=== PATIENT | male | born 1940 | race Caucasian/White ===

== ENCOUNTER 2021-05-13 21:24 | Day surgery (SDCO) | payer MEDICARE, OTHER ==
[~2021-05-13] VITALS: Ht 182.9 cm; Wt 125.7 kg
[~2021-05-13 21:24] MED LIST: ALLEGRA ALLERG180 MG PO; AMBIEN10 MG PO; ASPIRIN CHEWABL81 MG PO; ATIVAN1 MG PO; COZAAR50 MG PO; CYMBALTA 30MG C30 MG PO; DEPAKOTE ER250 MG PO; ELAVIL25 MG PO; ELIQUIS5 M1 PO; ELIQUIS5 MG PO; FOLIC ACID1 MG PO; LIPITOR 10MG TA10 MG PO; NARCAN4 MG INH; NORVASC5 MG PO; OXYCODONE-ACET1 EACH PO; PERCOCET 10-321 EACH PO; PERCOCET 5-3251 EACH PO; SYMBICORT 80-10.2 GM INH; TOPAMAX100 MG PO; VITAMIN B-121000 MC1 PO; VITAMIN D400 UNIT XX; [UNRECOGNIZED DRUG - OTHER] PO
[2021-05-13 22:12] LABS: BASOPHIL 0.4 % (0-2); EOSINOPHIL 0.4 % (0-7); HCT 41.4 % (42.0-52.0); HGB 13.2 g/dl (13.2-18.0); LYMPHOCYTE 9.9 % (15-48); MCH 32.1 pg (25.0-31.0); MCHC 31.9 g/dL (32.0-36.0); MCV 100.7 fL (78.0-100.0); MONOCYTE 8.4 % (0-12); MPV 10.4 fL (6.0-9.5); NEUTROPHIL 80.1 % (41-80); NRBC 0; PLT 150 K/uL (150-400); RBC 4.11 M/uL (4.70-6.00); RDW 13.3 % (11.5-14.0)
[2021-05-13 22:23] LABS: ALBUMIN 3.4 g/dL (3.4-5.0); BILIRUBIN - TOTAL 0.3 mg/dL (0.2-1.0); BUN/CREAT RATIO (CALC) 27.3 RATIO; CREATININE 1.21 mg/dL (0.67-1.17); GLOBULIN (CALCULATION) 3.1 g/dL; POTASSIUM 4.2 mmol/L (3.5-5.1); TOTAL PROTEIN 6.5 g/dL (6.4-8.2)
[2021-05-13 22:59] LABS: LACTIC ACID 1.5 mmol/L (0.4-1.9)
[2021-05-13 23:20] LABS: BILIRUBIN NEGATIVE (NEGATIVE); BLOOD NEGATIVE Ery/uL (NEGATIVE); CLARITY CLEAR (CLEAR); COLOR YELLOW (YELLOW); GLUCOSE (U) NORMAL (NORMAL); LEUKOCYTES NEGATIVE Leu/uL (NEGATIVE); NITRITE NEGATIVE (NEGATIVE); PROTEIN NEGATIVE (NEGATIVE)
[2021-05-14] MEDS ORDERED: VENTOLIN HFA IN18 GM INH (04:15)
[2021-05-14] MEDS ORDERED: NORVASC5 MG PO (04:16)
[2021-05-14] MEDS ORDERED: ELIQUIS5 MG PO (04:17)
[2021-05-14] MEDS ORDERED: ASPIRIN EC81 MG PO (04:18)
[2021-05-14] MEDS ORDERED: LIPITOR 10MG TA10 MG PO (04:18)
[2021-05-14] MEDS ORDERED: VITAMIN B122500 MC1 PO (04:19)
[2021-05-14] MEDS ORDERED: CYMBALTA 30MG C30 MG PO (04:20)
[2021-05-14] MEDS ORDERED: DEPAKOTE ER250 MG PO (04:20)
[2021-05-14] MEDS ORDERED: PEPCID AC20 MG PO (04:23)
[2021-05-14] MEDS ORDERED: VITAMIN D21250 MCG PO (04:23)
[2021-05-14] MEDS ORDERED: FOLIC ACID1 MG PO (04:24)
[2021-05-14] MEDS ORDERED: ALLEGRA ALLERG180 MG PO (04:24)
[2021-05-14] MEDS ORDERED: FOLIC ACID0.8 M1 PO (04:25)
[2021-05-14] MEDS ORDERED: TOPROL XL 25MG25 MG PO (04:26)
[2021-05-14] MEDS ORDERED: COZAAR50 MG PO (04:26)
[2021-05-14] MEDS ORDERED: DULERA 200 MCG8.8 GM INH (04:28)
[2021-05-14] MEDS ORDERED: NYSTATIN SUSP1 ML/ML SSP (04:29)
[2021-05-14] MEDS ORDERED: MULTIPLE VITAM1 EACH PO (04:29)
[2021-05-14] MEDS ORDERED: OFLOXACIN5 M1 AU (04:30)
[2021-05-14] MEDS ORDERED: TOPIRAMATE50 MG PO (04:31)
[2021-05-14] MEDS ORDERED: MELATONIN5 M2 PO (04:32)
[2021-05-14] MEDS ORDERED: JOINT HEALTH T1 EACH PO (04:33)
[2021-05-14] MEDS ORDERED: PERCOCET 5-3251 EACH PO (04:33)
[2021-05-14 06:15] LABS: BASOPHIL 0.2 % (0-2); EOSINOPHIL 0.1 % (0-7); HCT 42.3 % (42.0-52.0); HGB 13.4 g/dl (13.2-18.0); LYMPHOCYTE 3.2 % (15-48); MCHC 31.7 g/dL (32.0-36.0); MPV 10.2 fL (6.0-9.5); PLT 130 K/uL (150-400); RBC 4.19 M/uL (4.70-6.00); RDW 13.5 % (11.5-14.0); WBC 18.9 K/uL (4.0-10.5)
[2021-05-14 06:18] LABS: NEUTROPHIL 92.7 % (41-80)
[2021-05-14 06:44] LABS: CKMB 1.5 ng/mL (0.0-3.6); PRO-BNP 1132 pg/mL (<450)
[2021-05-14 07:05] LABS: BUN/CREAT RATIO (CALC) 27.8 RATIO; CREATININE 0.9 mg/dL (0.67-1.17); MAGNESIUM 1.8 mg/dL (1.8-2.4); POTASSIUM 3.8 mmol/L (3.5-5.1)
[2021-05-14 11:30] LABS: RETICULOCYTE COUNT 1.3 % (1.0-2.0)
[2021-05-14 11:32] LABS: BAND 5 % (0-10); LYMPHOCYTE(M) 4 % (15-48); MONOCYTE(M) 2 % (0-12); NEUTROPHILS(M) 89 % (41-80); NRBC 0; TOTAL CELL COUNT 100
[2021-05-14 11:34] LABS: D-DIMER 0.48 ug/mLFEU (0.00-0.41)
[2021-05-14 11:36] LABS: ACANTHOCYTES (THORN CELLS) RARE; ELLIPTOCYTES (OVALOCYTES) RARE; PLATELET ESTIMATE NORMAL; PLATELET MORPHOLOGY NORMAL
--- NOTE | 2021-05-14 11:39 | NUR ---
CALLED [facility] TO INFORM OF CONSULT FOR POSSIBLE ITP. SPOKE TO BO TREVINO APRN AND INFORMED OF CONSULT
--- NOTE | 2021-05-14 12:03 | NUR ---
BO TREVINO [facility]N [facility] CALLED TO FOLLOW UP ON CONSULT REQUESTED BY DR GLASS. DIAMOND POLISHER STATED DID NOT SEE ANYTHING WARRANTING AN IMMEDIATE VISIT. DIAMOND POLISHER ADVISED PATIENT WILL NEED HOSPITAL FOLLOW UP VISIT AT THE [facility]. VISIT TO BE SCHEDULED THROUGH [facility] @ [phone] PRIOR TO DISCHARGE
[2021-05-14 18:08] LABS: BASOPHIL 0.2 % (0-2); EOSINOPHIL 0 % (0-7); HCT 42.8 % (42.0-52.0); HGB 13.5 g/dl (13.2-18.0); LYMPHOCYTE 2.6 % (15-48); MCHC 31.5 g/dL (32.0-36.0); MCV 101.4 fL (78.0-100.0); MONOCYTE 4.8 % (0-12); MPV 10.2 fL (6.0-9.5); NRBC 0; PLT 142 K/uL (150-400); RBC 4.22 M/uL (4.70-6.00); RDW 13.5 % (11.5-14.0); WBC 28.6 K/uL (4.0-10.5)
[2021-05-14 18:13] LABS: NEUTROPHIL 90.8 % (41-80)
[2021-05-15 06:25] LABS: BASOPHIL 0.1 % (0-2); EOSINOPHIL 0 % (0-7); HCT 39.5 % (42.0-52.0); HGB 12.5 g/dl (13.2-18.0); LYMPHOCYTE 1.7 % (15-48); MCH 32.1 pg (25.0-31.0); MCHC 31.6 g/dL (32.0-36.0); MCV 101.3 fL (78.0-100.0); MONOCYTE 2.3 % (0-12); MPV 10.3 fL (6.0-9.5); NRBC 0; PLT 126 K/uL (150-400); RDW 13.5 % (11.5-14.0); WBC 23.9 K/uL (4.0-10.5)
[2021-05-15 06:28] LABS: NEUTROPHIL 94.2 % (41-80)
[2021-05-15 06:32] LABS: FIBRINOGEN 500 mg/dL (206-518)
[2021-05-15 06:33] LABS: INR 1.52 (0.9-1.2); PROTHROMBIN TIME 17.6 SECONDS (11.8-13.4); PTT 44.2 SECONDS (24.4-34.7)
[2021-05-15 06:34] LABS: D-DIMER < 0.27 ug/mLFEU (0.00-0.41)
[2021-05-15 06:43] LABS: ALBUMIN 2.9 g/dL (3.4-5.0); BILIRUBIN - TOTAL 0.4 mg/dL (0.2-1.0); BUN/CREAT RATIO (CALC) 29.3 RATIO; CREATININE 0.92 mg/dL (0.67-1.17); GLOBULIN (CALCULATION) 3.1 g/dL; MAGNESIUM 2.1 mg/dL (1.8-2.4); POTASSIUM 4.2 mmol/L (3.5-5.1)
[2021-05-15 06:53] LABS: TOTAL CELL COUNT 100
[2021-05-15 06:54] LABS: PRO-BNP 3053 pg/mL (<450)
[2021-05-15 07:00] LABS: LYMPHOCYTE(M) 2 % (15-48); METAMYELOCYTE 2; MONOCYTE(M) 2 % (0-12); NEUTROPHILS(M) 94 % (41-80)
[2021-05-15 07:01] LABS: PLATELET ESTIMATE NORMAL; PLATELET MORPHOLOGY NORMAL
[2021-05-16 04:18] LABS: BASOPHIL 0.1 % (0-2); EOSINOPHIL 0 % (0-7); HCT 37.5 % (42.0-52.0); HGB 11.8 g/dl (13.2-18.0); LYMPHOCYTE 2.5 % (15-48); MCH 31.6 pg (25.0-31.0); MCHC 31.5 g/dL (32.0-36.0); MCV 100.3 fL (78.0-100.0); MONOCYTE 3.8 % (0-12); MPV 10.1 fL (6.0-9.5); NRBC 0; PLT 127 K/uL (150-400); RBC 3.74 M/uL (4.70-6.00); RDW 13.3 % (11.5-14.0); WBC 17.5 K/uL (4.0-10.5)
[2021-05-16 04:19] LABS: NEUTROPHIL 92.3 % (41-80)
[2021-05-16 04:28] LABS: INR 1.45 (0.9-1.2); PROTHROMBIN TIME 16.9 SECONDS (11.8-13.4); PTT 44.6 SECONDS (24.4-34.7)
[2021-05-16 04:29] LABS: D-DIMER 0.32 ug/mLFEU (0.00-0.41)
[2021-05-16 04:44] LABS: ALBUMIN 2.7 g/dL (3.4-5.0); BILIRUBIN - TOTAL 0.3 mg/dL (0.2-1.0); BUN/CREAT RATIO (CALC) 25.9 RATIO; CREATININE 0.81 mg/dL (0.67-1.17); GLOBULIN (CALCULATION) 3.5 g/dL; MAGNESIUM 2.1 mg/dL (1.8-2.4); PHOSPHORUS 3.2 mg/dL (2.6-4.7); POTASSIUM 4.4 mmol/L (3.5-5.1); TOTAL PROTEIN 6.2 g/dL (6.4-8.2)
[2021-05-16 04:47] LABS: PRO-BNP 2950 pg/mL (<450)
[2021-05-16 05:18] LABS: BAND 6 % (0-10); BASOPHIL(M) 0 % (0-2); EOSINOPHIL(M) 0 % (0-7); LYMPHOCYTE(M) 8 % (15-48); MONOCYTE(M) 6 % (0-12); NEUTROPHILS(M) 80 % (41-80); PLATELET ESTIMATE NORMAL; PLATELET MORPHOLOGY NORMAL; TOTAL CELL COUNT 100
[2021-05-17 05:54] LABS: BASOPHIL 0.3 % (0-2); EOSINOPHIL 0 % (0-7); HCT 38.6 % (42.0-52.0); HGB 12.2 g/dl (13.2-18.0); LYMPHOCYTE 5.7 % (15-48); MCHC 31.6 g/dL (32.0-36.0); MCV 101.3 fL (78.0-100.0); MONOCYTE 6.7 % (0-12); MPV 10.2 fL (6.0-9.5); NEUTROPHIL 86.2 % (41-80); PLT 134 K/uL (150-400); RBC 3.81 M/uL (4.70-6.00); RDW 13.3 % (11.5-14.0); WBC 15.8 K/uL (4.0-10.5)
[2021-05-17 06:11] LABS: CREATININE 0.92 mg/dL (0.67-1.17); MAGNESIUM 2.3 mg/dL (1.8-2.4); POTASSIUM 5.5 mmol/L (3.5-5.1)
[2021-05-17 06:50] LABS: BAND 10 % (0-10); LYMPHOCYTE(M) 6 % (15-48); MONOCYTE(M) 3 % (0-12); NEUTROPHILS(M) 81 % (41-80); TOTAL CELL COUNT 100
[2021-05-17 06:51] LABS: NRBC 0
[2021-05-17 06:52] LABS: PLATELET ESTIMATE NORMAL; PLATELET MORPHOLOGY NORMAL
[2021-05-17 06:53] LABS: DACRYOCYTES (TEAR DROP CELLS) RARE
[2021-05-17 06:55] LABS: ACANTHOCYTES (THORN CELLS) RARE
[2021-07-07] MEDS ORDERED: OXYCODONE-ACET1 EACH PO (17:51)
[2021-07-15] MEDS ORDERED: OXYCODONE-ACET1 EACH PO (08:07)
== END 2021-05-17 11:04 | disposition other institution (70) ==
LOC: FER 21:24 → FMS 05-14 02:43
PROVIDERS: Nurse Practitioner; Nurse Practitioner Family; ADMIT Internal Medicine
DX: R07.89 Other chest pain (principal); R78.81 Bacteremia; G54.0 Brachial plexus disorders; I27.20 Pulmonary hypertension, unspecified; I48.20 Chronic atrial fibrillation, unspecified; D69.6 Thrombocytopenia, unspecified; D72.829 Elevated white blood cell count, unspecified; E11.65 Type 2 diabetes mellitus with hyperglycemia; I25.10 Atherosclerotic heart disease of native coronary artery without angina pectoris; Z20.822 Contact with and (suspected) exposure to COVID-19; I49.5 Sick sinus syndrome; I10 Essential (primary) hypertension; M54.9 Dorsalgia, unspecified; G89.29 Other chronic pain; E78.5 Hyperlipidemia, unspecified; J44.9 Chronic obstructive pulmonary disease, unspecified; F32.9 Major depressive disorder, single episode, unspecified; F41.9 Anxiety disorder, unspecified; K21.9 Gastro-esophageal reflux disease without esophagitis; I25.2 Old myocardial infarction; K58.9 Irritable bowel syndrome, unspecified; Z95.1 Presence of aortocoronary bypass graft; Z87.891 Personal history of nicotine dependence; Z88.6 Allergy status to analgesic agent; Z88.2 Allergy status to sulfonamides; Z88.8 Allergy status to other drugs, medicaments and biological substances; Z79.01 Long term (current) use of anticoagulants; Z79.891 Long term (current) use of opiate analgesic; Z79.82 Long term (current) use of aspirin; Z79.899 Other long term (current) drug therapy
CPT/HCPCS: 36415; 71045; 71260; 71275; 78452; 80048; 80053; 80061; 81003; 82553; 82607; 82962; 83540; 83550; 83605; 83735; 83880; 84100; 84145; 84439; 84443; 84484; 85025; 85362; 85379; 85384; 85610; 85730; 86431; 87040; 87186; 87339; 93005; 93017; 94010; 94640; 94760; 94762; 97165; 97535; A9500; G0378; J1170; J2270; J2405; J2543; J2785; J2916; J2930; J3370; J7040; Q9967; U0002

== ENCOUNTER 2021-06-09 12:42 | Emergency (ER) | payer MEDICARE, OTHER ==
[~2021-06-09 12:42] MED LIST changes: +ASPIRIN EC81 MG PO; +DULERA 200 MCG8.8 GM INH; +FOLIC ACID0.8 M1 PO; +JOINT HEALTH T1 EACH PO; +MELATONIN5 M2 PO; +MULTIPLE VITAM1 EACH PO; +NYSTATIN SUSP1 ML/ML SSP; +OFLOXACIN5 M1 AU; +PEPCID AC20 MG PO; +TOPIRAMATE50 MG PO; +TOPROL XL 25MG25 MG PO; +VENTOLIN HFA IN18 GM INH; +VITAMIN B122500 MC1 PO; +VITAMIN D21250 MCG PO
[2021-07-07] MEDS ORDERED: OXYCODONE-ACET1 EACH PO (17:51)
[2021-07-15] MEDS ORDERED: OXYCODONE-ACET1 EACH PO (08:07)
== END 2021-06-09 15:03 | disposition home or self-care (01) ==
LOC: FER 12:42
DX: R04.0 Epistaxis (principal); I10 Essential (primary) hypertension; E11.9 Type 2 diabetes mellitus without complications; J45.909 Unspecified asthma, uncomplicated; Z79.01 Long term (current) use of anticoagulants; Z79.82 Long term (current) use of aspirin; Z88.2 Allergy status to sulfonamides; Z88.8 Allergy status to other drugs, medicaments and biological substances

== ENCOUNTER 2021-11-19 03:33 | Inpatient (IN) | payer MEDICARE, OTHER ==
[~2021-11-19] VITALS: Ht 182.9 cm; Wt 127.2 kg
[2021-11-19 04:54] LABS: BASOPHIL 0.4 % (0-2); EOSINOPHIL 0.5 % (0-7); HCT 36.6 % (42.0-52.0); HGB 11.4 g/dl (13.2-18.0); LYMPHOCYTE 9.7 % (15-48); MCH 30.8 pg (25.0-31.0); MCHC 31.1 g/dL (32.0-36.0); MCV 98.9 fL (78.0-100.0); MONOCYTE 9.2 % (0-12); MPV 10.4 fL (6.0-9.5); NEUTROPHIL 79.4 % (41-80); NRBC 0; PLT 223 K/uL (150-400); RDW 13.2 % (11.5-14.0); WBC 10.2 K/uL (4.0-10.5)
[2021-11-19 05:09] LABS: ALBUMIN 3.2 g/dL (3.4-5.0); BILIRUBIN - TOTAL 0.5 mg/dL (0.2-1.0); BUN/CREAT RATIO (CALC) 18.8 RATIO; CREATININE 0.85 mg/dL (0.67-1.17); GLOBULIN (CALCULATION) 4.1 g/dL; POTASSIUM 3.9 mmol/L (3.5-5.1); TOTAL PROTEIN 7.3 g/dL (6.4-8.2)
[2021-11-19 05:16] LABS: LACTIC ACID 1.5 mmol/L (0.4-1.9)
[2021-11-19 08:25] LABS: BILIRUBIN NEGATIVE (NEGATIVE); BLOOD NEGATIVE Ery/uL (NEGATIVE); CLARITY CLEAR (CLEAR); COLOR YELLOW (YELLOW); GLUCOSE (U) NORMAL (NORMAL); LEUKOCYTES 1+ Leu/uL (NEGATIVE); NITRITE NEGATIVE (NEGATIVE); PROTEIN NEGATIVE (NEGATIVE); UROBILINOGEN 0.2 mg/dL (0.2-1.0)
[2021-11-19 08:48] LABS: URINARY WBC RARE
[2021-11-19 08:57] LABS: CORONAVIRUS 2019 SARS-COV-2 NEGATIVE (NEGATIVE); INFLUENZA A NAA NEGATIVE (NEGATIVE)
[2021-11-19] MEDS ORDERED: DEPAKOTE250 MG PO (16:22)
[2021-11-19] MEDS ORDERED: DULERA 200 MCG8.8 GM INH (16:48)
[2021-11-19] MEDS ORDERED: OXYCODONE-APAP1 TAB PO (16:56)
[2021-11-19 17:08] LABS: RETICULOCYTE COUNT 1.6 % (1.0-2.0)
[2021-11-19 17:40] LABS: BUN/CREAT RATIO (CALC) 16.7 RATIO; CREATININE 0.78 mg/dL (0.67-1.17); POTASSIUM 3.9 mmol/L (3.5-5.1)
[2021-11-19 18:05] LABS: IRON % SATURATION 11.2 %SAT (20-50)
[2021-11-19] MEDS ORDERED: VIBRAMYCIN100 MG PO (18:18)
[2021-11-19] MEDS ORDERED: MUPIROCIN1 GM TOP (18:21)
[2021-11-19] MEDS ORDERED: COZAAR50 MG PO (18:22)
[2021-11-19] MEDS ORDERED: KLOR-CON 1010 MEQ PO (18:25)
[2021-11-19] MEDS ORDERED: PREVACID30 M1 PO (18:26)
[2021-11-19] MEDS ORDERED: ATIVAN0.5 MG PO (18:31)
[2021-11-19] MEDS ORDERED: VITAMIN D31250 MC1 PO (18:34)
[2021-11-19] MEDS ORDERED: TOPIRAMATE100 MG PO (18:37)
[2021-11-19] MEDS ORDERED: LASIX20 MG PO (18:38)
[2021-11-19] MEDS ORDERED: ONDANSETRON HCL4 MG PO (18:45)
[2021-11-19] MEDS ORDERED: PEPCID AC20 MG PO (18:46)
[2021-11-19] MEDS ORDERED: [UNRECOGNIZED DRUG - OTHER] PO (18:47)
[2021-11-20 06:53] LABS: HCT 34.1 % (42.0-52.0); MCH 30.9 pg (25.0-31.0); MCHC 32.3 g/dL (32.0-36.0); MCV 95.8 fL (78.0-100.0); MPV 10.2 fL (6.0-9.5); RBC 3.56 M/uL (4.70-6.00); WBC 8.9 K/uL (4.0-10.5)
[2021-11-20 07:14] LABS: BUN/CREAT RATIO (CALC) 24.6 RATIO; CREATININE 0.69 mg/dL (0.67-1.17)
--- NOTE | 2021-11-20 17:00 | NUR ---
REQUEST TO [facility] FOR MEDICAL RECORDS FOR IMAGING RESULTS IN APRIL 2021
[2021-11-21 06:59] LABS: BUN/CREAT RATIO (CALC) 25.8 RATIO; CREATININE 0.89 mg/dL (0.67-1.17); POTASSIUM 3.8 mmol/L (3.5-5.1)
[2021-11-21 09:06] LABS: HBSAG SCREEN Negative (Negative); HEP A AB, IGM Negative (Negative); HEP B CORE AB, IGM Negative (Negative); HEP C VIRUS AB <0.1 (0.0-0.9)
[2021-11-21] MEDS ORDERED: POTASSIUM CHLO20 ME2 PO (09:16)
[2021-11-21] MEDS ORDERED: LASIX20 MG PO (09:16)
== END 2021-11-21 11:40 | disposition home or self-care (01) | DRG 291 ==
LOC: FER 03:33 → FOFB 12:12 → FMS 12:12
PROVIDERS: Emergency Medicine Emergency Medical Services; Internal Medicine Cardiovascular Disease; Nurse Practitioner Acute Care; ADMIT Internal Medicine
DX: I11.0 Hypertensive heart disease with heart failure (principal); I50.23 Acute on chronic systolic (congestive) heart failure; J96.01 Acute respiratory failure with hypoxia; I48.20 Chronic atrial fibrillation, unspecified; C22.8 Malignant neoplasm of liver, primary, unspecified as to type; J98.11 Atelectasis; I25.10 Atherosclerotic heart disease of native coronary artery without angina pectoris; K21.9 Gastro-esophageal reflux disease without esophagitis; Z96.652 Presence of left artificial knee joint; E11.65 Type 2 diabetes mellitus with hyperglycemia; Z20.822 Contact with and (suspected) exposure to COVID-19; I27.20 Pulmonary hypertension, unspecified; Z96.1 Presence of intraocular lens; Z95.1 Presence of aortocoronary bypass graft; Z85.820 Personal history of malignant melanoma of skin; I49.5 Sick sinus syndrome; I25.5 Ischemic cardiomyopathy; D64.9 Anemia, unspecified; E66.01 Morbid (severe) obesity due to excess calories; Z95.0 Presence of cardiac pacemaker; Z98.42 Cataract extraction status, left eye; Z98.41 Cataract extraction status, right eye; Z98.890 Other specified postprocedural states; Z80.1 Family history of malignant neoplasm of trachea, bronchus and lung; Z81.2 Family history of tobacco abuse and dependence; Z82.49 Family history of ischemic heart disease and other diseases of the circulatory system; Z87.891 Personal history of nicotine dependence; Z79.01 Long term (current) use of anticoagulants; Z79.82 Long term (current) use of aspirin; Z79.899 Other long term (current) drug therapy
CPT/HCPCS: 36415; 36600; 71045; 71275; 80048; 80053; 80074; 81001; 82105; 82378; 82728; 82803; 82962; 83540; 83550; 83605; 83880; 84145; 84484; 85025; 85379; 87040; 87088; 93005; 94640; 94760; J1940; Q9967; U0002